=== PATIENT | female | born 1950 | race Caucasian/White ===

== ENCOUNTER 2019-02-11 07:50 | Inpatient (IN) | payer MEDICARE, OTHER | END 2019-02-13 13:40 | disposition home or self-care (01) | LOC: DAHIP 07:50 → 4BH 14:22 → 4AH 02-12 17:01 | PROC: 0SRD0JA Replacement of Left Knee Joint with Synthetic Substitute, Uncemented, Open Approach (ICD-10-PCS; principal; 2019-02-11 11:16) | DX: M17.12 Unilateral primary osteoarthritis, left knee (principal) ==

== ENCOUNTER → 2022-10-30 | Outpatient (CLI) | payer MEDICARE ==
[~2022-10-30] MED LIST: ASCO500C18 PO; CETI10CA5 PO; HYDR25TA PO; JOINT SOOTHER PO; MELO-108 PO; MULT-1283 PO; OMEGA Q PO; VITAMIN B12 PO; VITAMIN B6 PO; VITAMIN D3 PO
== END | disposition home or self-care (01) ==
LOC: RAH 12:39
PROVIDERS: ATTEND Family Medicine
DX: M47.812 Spondylosis without myelopathy or radiculopathy, cervical region (principal); M48.02 Spinal stenosis, cervical region; M54.2 Cervicalgia; R51.9 Headache, unspecified
CPT/HCPCS: 70450; 72125

== ENCOUNTER → 2023-05-27 | Outpatient (CLI) | payer MEDICARE | END | disposition home or self-care (01) | LOC: RAH 09:31 | PROVIDERS: ATTEND Family Medicine | DX: Z12.31 Encounter for screening mammogram for malignant neoplasm of breast (principal) | CPT/HCPCS: 77067 ==